=== PATIENT | male | born 1935 | race Caucasian/White ===

== ENCOUNTER 2021-10-25 13:00 | Outpatient (RCR) | payer MEDICARE, OTHER, SELFPAY | END 2021-10-27 23:59 | disposition home or self-care (01) | LOC: CR 13:00 | PROVIDERS: PCP Registered Nurse Infection Control; Visit Provider Internal Medicine Cardiovascular Disease | DX: Z51.89 Encounter for other specified aftercare (principal); I25.2 Old myocardial infarction; Z95.5 Presence of coronary angioplasty implant and graft | CPT/HCPCS: S9472 ==

== ENCOUNTER 2021-11-22 12:51 | Outpatient (RCR) | payer MEDICARE, OTHER, SELFPAY | END 2021-11-27 23:59 | disposition home or self-care (01) | LOC: CR 12:51 | PROVIDERS: PCP Registered Nurse Infection Control; Visit Provider Internal Medicine Cardiovascular Disease | DX: Z51.89 Encounter for other specified aftercare (principal); I25.2 Old myocardial infarction; Z95.5 Presence of coronary angioplasty implant and graft | CPT/HCPCS: S9472 ==